=== PATIENT | male | born 1955 | race Caucasian/White ===

== ENCOUNTER 2017-08-16 06:12 | Outpatient (CLI) ==
--- NOTE | 2017-08-16 08:25 | DI ---
EXAM: Two views of the chest. History: Short of breath Findings: Heart is mildly enlarged. Pacer device and sternotomy wires. Artificial heart valve. No focal consolidation. No appreciable pleural fluid and no pneumothorax. No acute osseous abnormalit ies. Impression: Mild cardiomegaly without acute disease in the chest
--- NOTE | 2017-08-17 08:30 | ECHO2D ---
Date of Exam: 08/16/17 Ordering Physician: DR. SAHARA SALAZAR Room #: OP Reason for Echo: AVR, MECHANICAL VALVE, PACEMAKER M-Mode Normal Adult Results LV Dimensions Normal Adult Results AoV Opening excursions >1.6 1.6 LVEDD-base- 3.5-5.8 5.5 Ao root dimensions 2.0-3.7 4.0 LVESD-base- 3.1-4.6 L. Atrium dimensions 1.9-3.8 4.3 Post. Wall thickness 0.8-1.1 1.2 IV septum (thickness) 0.7-1.2 1.1 Post. Wall excursion 0.72-1.3 NORMAL Septal motion NORMAL Systolic motion R. Ventricular cavity 1.5-2.0 NORMAL LVEF 60% 53% Paradoxical septal wall motion NORMAL 2-D : MAYBE MILDLY HYPOKINETIC SEPTUM--STATUS POST SURGERY--NORMAL MECHANICAL VALVE (AORTIC), OTHER VALVES NORMAL, NO EFFUSION, NO THROMBUS, ENLARGED LEFT ATRIAL CAVITY, NORMAL LEFT VENTRICLE SIZE M-MODE: MV: NORMAL AV: NORMAL MECHANICAL PROSTHESIS TV: NORMAL PV: NORMAL CHAMBER SIZE: ENLARGED LEFT ATRIAL CAVITY (MILD) WALL MOTION: NORMAL PERICARDIUM: NORMAL INTERPRETATION: 1. BORDERLINE LEFT VENTRICULAR HYPERTROPHY 2. NORMAL AORTIC VALVE PROSTHESIS/ NORMAL FUNCTIONING 3. ENLARGED LEFT ATRIAL CAVITY, MILD 4. NORMAL LEFT VENTRICULAR CONTRACTILITY--EJECTION FRACTION 50% MTDD
== END 2017-08-16 06:13 | disposition home or self-care (01) ==
LOC: CAR 06:12
PROVIDERS: ATTEND Internal Medicine
DX: R06.02 Shortness of breath (principal); Z95.0 Presence of cardiac pacemaker; Z95.2 Presence of prosthetic heart valve